=== PATIENT | female | born 1955 | race Two or more races ===

== ENCOUNTER 2017-07-31 22:45 | Emergency (ER) | payer OTHER ==
[~2017-07-31] VITALS: Ht 144.8 cm; Wt 90.7 kg
[2017-07-31 22:55] VITALS: BP 144/78
[2017-07-31] MEDS ORDERED: LIDOCAINE 1% INJ 50 ML MDV IJ ONE ×2 (23:10→23:30)
[2017-07-31] MEDS ORDERED: TDAP [DIPH/PERTUSSIS/TET] 0.5 ML VIAL IM ONE ×2 (23:11→23:30)
== END 2017-08-01 01:47 | disposition home or self-care (01) ==
LOC: EDBD → ER 22:54
DX: S61.111A Laceration without foreign body of right thumb with damage to nail, initial encounter (principal); X58.XXXA Exposure to other specified factors, initial encounter; Y93.89 Activity, other specified; Y92.89 Other specified places as the place of occurrence of the external cause; Y99.8 Other external cause status
CPT/HCPCS: 11730; 12001; 90471; 90715; 99283; A4606; A6402; J3490; Z7610

== ENCOUNTER 2017-08-03 08:54 | Emergency (ER) | payer OTHER ==
[~2017-08-03] VITALS: Ht 154.9 cm; Wt 59.0 kg
[2017-08-03 09:05] VITALS: BP 114/80
== END 2017-08-03 09:28 | disposition home or self-care (01) ==
LOC: ER 08:57
DX: S61.111A Laceration without foreign body of right thumb with damage to nail, initial encounter (principal); X58.XXXA Exposure to other specified factors, initial encounter; Y93.89 Activity, other specified; Y92.89 Other specified places as the place of occurrence of the external cause; Y99.8 Other external cause status
CPT/HCPCS: 29125; 99283; A4606; A6253; Z7610

== ENCOUNTER 2017-08-08 18:57 | Emergency (ER) | payer OTHER ==
[~2017-08-08] VITALS: Ht 162.6 cm; Wt 72.6 kg
[2017-08-08 19:02] VITALS: BP 125/87
[2017-08-08] MEDS ORDERED: BACITRACIN ZINC OINT PACKET 1 EA PACKET TP ONE (19:30)
== END 2017-08-08 19:36 | disposition home or self-care (01) ==
LOC: ER 19:00
DX: S61.011D Laceration without foreign body of right thumb without damage to nail, subsequent encounter (principal)
CPT/HCPCS: 99281; A4606; Z7610; Z7502